=== PATIENT | male | born 1970 ===

== ENCOUNTER 2018-10-25 18:19 | Emergency (ER) | payer OTHER ==
[~2018-10-25] VITALS: Ht 165.1 cm; Wt 72.6 kg
== END 2018-10-25 22:14 | disposition home or self-care (01) ==
LOC: ER 18:19
DX: S20.212A Contusion of left front wall of thorax, initial encounter (principal); W18.39XA Other fall on same level, initial encounter; Y93.89 Activity, other specified; Y92.89 Other specified places as the place of occurrence of the external cause; Y99.8 Other external cause status